=== PATIENT | female | born 1935 | race Caucasian/White ===

== ENCOUNTER 2017-11-07 21:48 | Inpatient (IN) ==
[2017-11-07 22:51] LABS: Basophils % 0.8 %; Eosinophils # 0.3 K/mcL (0.0-0.6); Eosinophils % 6.5 %; Hematocrit 32.9 % (35.3-44.9); Hemoglobin 10.9 g/dL (11.5-15.4); Immature Granulocytes % 0.2 % (0-4); Lymphocytes # 1.1 K/mcL (0.6-4.6); Lymphocytes % 20.8 %; Mean Corpuscular HGB Conc 33.1 g/dL (31.6-35.5); Mean Corpuscular Hemoglobin 32.6 pg (28.0-33.3); Mean Corpuscular Volume 98.5 fL (83.0-100.0); Mean Platelet Volume 10.2 fL (9.4-12.4); Monocytes # 0.5 K/mcL (0.0-1.3); Neutrophils # 3.1 K/mcL (1.6-8.9); Platelet Count 124 K/mcL (140-400); Red Blood Count 3.34 M/mcL (3.82-4.97); Red Cell Distribution Width 13.1 % (11.5-14.5); Segmented Neutrophils % 61.7 %
[2017-11-07 23:12] LABS: BUN/Creatinine Ratio 21 (6-26); Blood Urea Nitrogen 21 mg/dL (8-23); Carbon Dioxide 26 mEq/L (23-29); Chloride 106 mEq/L (98-107); Glucose 88 mg/dL (70-105); Osmolality,Calculated 290 (280-300); Potassium 4.1 mEq/L (3.5-5.1); Sodium 139 mEq/L (136-145); eGFR For African Americans > 60 (> 60); eGFR For Non-African Americans 54 (> 60)
[2017-11-07 23:13] LABS: Troponin I 0.03 ng/mL (< 0.04)
[2017-11-07] MEDS ORDERED: Furosemide 40 MG/4 ML VIAL IVP ONE (23:44)
[2017-11-07] MEDS ORDERED: Isovue-370 500 ML INFUS..BTL IV ONE (23:45)
--- NOTE | 2017-11-08 00:23 | Emergency Department Note ---
Disposition Clinical Impression: Congestive heart failure Qualifiers: Heart failure type: unspecified Heart failure chronicity: acute on chronic Qualified Code(s): I50.9 - Heart failure, unspecified Community acquired pneumonia Qualifiers: Laterality: unspecified laterality Qualified Code(s): J18.9 - Pneumonia, unspecified organism Disposition: Admitted As Inpatient Condition: Undetermined Referrals: NONE,PCP [Primary Care Provider] - Forms: ED Satisfaction Letter General Adult HPI - General Chief complaint: ED Shortness of Breath/Dyspnea Stated complaint: COUGH/SOB Time Seen by Provider: 11/07/17 22:13 Source: patient, EMS Mode of arrival: EMS Limitations: age Nursing Notes Reviewed: Yes Vital Signs Reviewed: Yes - History of Present Illness HPI Narrative: 82-year-old female with a history of dementia, CABG, hysterectomy, hypertension , systolic heart murmur, CHF presents to the emergency room for evaluation of a cough and congestion. Patient was brought in by EMS from [facility] in [place], [place] at the request of the family. According to patient's postal mail carrier/[id number] on Sunday patient's blood pressure was 53/43 at the PCPs office she was sent to hold her ED where she received fluids and was told to hold patient's lisinopril and coronary until seen by PCP again. Today patient's blood pressure was down again said the family notified EMS but unsure of the result Caregiver states within the last 5 days patient has gained 7 pounds going from 103 pounds to 110 pounds and has edema to her bilateral lower extremities. Caregiver states patient has been coughing more and it is productive with a thin clear fluid. Caregiver states coughing that is productive like this is a chronic condition however over the last couple days he has increased. Patient does wear 2 L O2 during at bedtime due to shortness of breath. Caregiver states patient has sores on her feet that she says have vascular testing with Dr. Le on the . Patient does have a history of dementia, caregiver states in new places patient is more confused than she also suffers from . Patient does have a POA which is her son, she is a full code per the caregiver. Caregiver and patient both refuse fever, chills, chest pain, nausea, vomiting, diarrhea, constipation. Caregiver does state the patient has been more lethargic and suffering from general malaise over the last couple days. Patient states she is unsure why she is here. Onset (ago): day(s) - Related Data Allergies Allergy/AdvReac Type Severity Reaction Status Date / Time No Known Allergies Allergy Verified 11/07/17 21:50 All systems ED: reviewed and negative except as stated. Review of Systems: As Per HPI Past Medical History - Past Medical History Attestation: Yes The following information was validated with the patient. Source: patient Medical history: Reports: CHF, hypertension Psychiatric history: Reports: no psych history ECONOMIC ANALYST history: Reports: non-contributory - Social History Smoking Status: Never smoker Smokeless Tobacco Status: No Alcohol use: Reports: none Drug use: Reports: none Physical Exam - General Limitations: altered mental status (Baseline dementia), age General appearance: alert, in no apparent distress - Head Head exam: atraumatic, normocephalic, normal inspection - Eye Eye exam: Present: normal appearance, PERRL - ENT ENT exam: mucous membranes moist - Neck Neck exam: Present: normal inspection, full ROM, trachea midline - Chest Chest inspection: Present: normal inspection, symmetric chest wall rise - Respiratory Respiratory exam: Present: prolonged expiratory phase - Expanded Respiratory Exam Location: wheezes: Left, Right, Lower, rhonchi: Left, Right, Lower (Scattered), decreased breath sounds: Left, Right, Lower - Cardiovascular Cardiovascular exam: Present: regular rate, normal rhythm, systolic murmur, other (+2 pitting edema bilateral lower exterminities) - Abdominal Exam Abdominal exam: Present: soft, Non-Tender, normal bowel sounds - Extremities Exam Extremities exam: Present: normal inspection, full ROM. Absent: tenderness, pedal edema - Expanded Lower Extremity Exam Gait: not tested/not observed - Neurological Exam Neurological exam: Present: alert, oriented X3 (Alert and oriented 3 difficulty with following conversation due to baseline dementia) - Psychiatric Psychiatric exam: Present: normal affect, normal mood - Skin Skin exam: Present: warm, dry, normal color Course Course Narrative: 82-year-old female who is well-hydrated, well-developed in no apparent distress presents to the emergency department via EMS. Upon arrival patient is unable to state why she was brought to our facility. She states she has not been feeling sick. She is unable to review a course of events that led from her being at home through the hospital to here. However patient is alert and oriented 3 she is able to see where she is at, her name birthday, and answer questions. Physical exam reveals decreased breath sounds, scattered rhonchi to bases, patient does not appear in any respiratory distress that she is speaking in full sentences easily, SPO2 97% on room air. EKG without changes from previous from [facility], no sign of ST elevation or ST depression is noted to have inverted P and T waves in inferior leads, noted with 2+ bilateral pitting edema to bilateral lower extermities, bowel sounds 4 no masses, organomegaly, tenderness with palpation. Chest x-ray shows left lower lobe pleural effusions as well as left lower lobe pneumonia. BNP 756, GFR 54, troponin within normal limits on initial labs. D- dimer 1313. Given the patient has had increased coughing, increased mucus production we will continue a CT of the chest to ensure no PE. No family was available at the hospital for consultation, initially prior to lab work returning I spoke with caregiver on the phone who denied any hemoptysis , purulent mucus production, or signs of systemic infection. She states patient is constant and has not noticed any change in smell of urine. I asked patient to his symptoms and she did answer all of them were negative and that she continue states she did not know why she was here. She did admit to coughing more and having some difficulty in breathing over "last couple days ". Plan is to admit to hospitalist services for CHF exacerbation compounded with community acquired pneumonia. Dr. Bucio has had one-on-one face time with patient and is agreeable to plan of care. - Reevaluation(s) Reevaluation #1: CT of the chest returns without sign of PE, does show a nodule in the chest that they cannot rule out malignancy. Spoke with hospitalist who is agreeable to see patient at this time. She has been resting comfortably in no acute distress continues with O2 at 2 L. Time: 04:16 Vital Signs Temperature 97.6 F 11/07/17 21:50 Pulse Rate 69 11/07/17 21:50 Respiratory Rate 18 11/07/17 21:50 Blood Pressure 121/66 11/07/17 21:50 O2 Sat by Pulse Oximetry 95 11/07/17 21:50 Temperature 97.6 F 11/07/17 21:50 Pulse Rate 69 11/07/17 21:50 Respiratory Rate 18 11/07/17 21:50 Blood Pressure 121/66 11/07/17 21:50 O2 Sat by Pulse Oximetry 95 11/07/17 21:50 Oxygen Delivery Oxygen Delivery Room Air Medical Decision Making - Lab Data Result diagrams: 11/07/17 22:41 11/07/17 22:41 Lab Results 11/07/17 11/07/17 11/07/17 Range/Units 22:41 22:41 22:41 WBC 5.1 (4.3-11.1) K/mcL RBC 3.34 L (3.82-4.97) M/mcL Hgb 10.9 L (11.5-15.4) g/dL Hct 32.9 L (35.3-44.9) % MCV 98.5 (83.0-100.0) fL MCH 32.6 (28.0-33.3) pg MCHC 33.1 (31.6-35.5) g/dL RDW 13.1 (11.5-14.5) % Plt Count 124 L (140-400) K/mcL MPV 10.2 (9.4-12.4) fL Immature Gran % 0.2 (0-4) % Seg Neutrophils % 61.7 % Lymphocytes % 20.8 % Monocytes % 10.0 % Eosinophils % 6.5 % Basophils % 0.8 % Neutrophils # 3.1 (1.6-8.9) K/mcL Lymphocytes # 1.1 (0.6-4.6) K/mcL Monocytes # 0.5 (0.0-1.3) K/mcL Eosinophils # 0.3 (0.0-0.6) K/mcL Basophils # 0.0 (0.0-0.2) K/mcL D-Dimer 1313 H (0-500) ng/mLFEU Sodium 139 (136-145) mEq/L Potassium 4.1 (3.5-5.1) mEq/L Chloride 106 (98-107) mEq/L Carbon Dioxide 26 (23-29) mEq/L BUN 21 (8-23) mg/dL Creatinine 0.99 (0.60-1.20) mg/dL Est GFR ( Amer) > 60 (> 60) Est GFR (Non-Af Amer) 54 L (> 60) BUN/Creatinine Ratio 21 (6-26) Glucose 88 (70-105) mg/dL Calculated Osmolality 290 (280-300) Lactic Acid (0.5-2.2) mmol/L Calcium 9.0 (8.6-10.3) mg/dL Troponin I 0.03 (< 0.04) ng/mL B-Natriuretic Peptide (Less than 100) pg/mL Urine Color (Yellow) Urine Clarity (Clear) Urine pH (5.0-8.0) pH Units Ur Specific [place] (1.010-1.025) Urine Protein (Neg-Trace) mg/dL Urine Glucose (UA) (Normal) mg/dL Urine Ketones (Negative) mg/dL Urine Blood (Negative) Urine Nitrite (Negative) Urine Bilirubin (Negative) Urine Urobilinogen (Normal) mg/dL Ur Leukocyte Esterase (Negative) Ur Culture Indicated? (NO) 11/07/17 11/07/17 11/08/17 Range/Units 22:41 22:41 01:01 WBC (4.3-11.1) K/mcL RBC (3.82-4.97) M/mcL Hgb (11.5-15.4) g/dL Hct (35.3-44.9) % MCV (83.0-100.0) fL MCH (28.0-33.3) pg MCHC (31.6-35.5) g/dL RDW (11.5-14.5) % Plt Count (140-400) K/mcL MPV (9.4-12.4) fL Immature Gran % (0-4) % Seg Neutrophils % % Lymphocytes % % Monocytes % % Eosinophils % % Basophils % % Neutrophils # (1.6-8.9) K/mcL Lymphocytes # (0.6-4.6) K/mcL Monocytes # (0.0-1.3) K/mcL Eosinophils # (0.0-0.6) K/mcL Basophils # (0.0-0.2) K/mcL D-Dimer (0-500) ng/mLFEU Sodium (136-145) mEq/L Potassium (3.5-5.1) mEq/L Chloride (98-107) mEq/L Carbon Dioxide (23-29) mEq/L BUN (8-23) mg/dL Creatinine (0.60-1.20) mg/dL Est GFR ( Amer) (> 60) Est GFR (Non-Af Amer) (> 60) BUN/Creatinine Ratio (6-26) Glucose (70-105) mg/dL Calculated Osmolality (280-300) Lactic Acid 1.2 0.9 (0.5-2.2) mmol/L Calcium (8.6-10.3) mg/dL Troponin I (< 0.04) ng/mL B-Natriuretic Peptide 756 H (Less than 100) pg/mL Urine Color (Yellow) Urine Clarity (Clear) Urine pH (5.0-8.0) pH Units Ur Specific [place] (1.010-1.025) Urine Protein (Neg-Trace) mg/dL Urine Glucose (UA) (Normal) mg/dL Urine Ketones (Negative) mg/dL Urine Blood (Negative) Urine Nitrite (Negative) Urine Bilirubin (Negative) Urine Urobilinogen (Normal) mg/dL Ur Leukocyte Esterase (Negative) Ur Culture Indicated? (NO) 11/08/17 Range/Units 02:20 WBC (4.3-11.1) K/mcL RBC (3.82-4.97) M/mcL Hgb (11.5-15.4) g/dL Hct (35.3-44.9) % MCV (83.0-100.0) fL MCH (28.0-33.3) pg MCHC (31.6-35.5) g/dL RDW (11.5-14.5) % Plt Count (140-400) K/mcL MPV (9.4-12.4) fL Immature Gran % (0-4) % Seg Neutrophils % % Lymphocytes % % Monocytes % % Eosinophils % % Basophils % % Neutrophils # (1.6-8.9) K/mcL Lymphocytes # (0.6-4.6) K/mcL Monocytes # (0.0-1.3) K/mcL Eosinophils # (0.0-0.6) K/mcL Basophils # (0.0-0.2) K/mcL D-Dimer (0-500) ng/mLFEU Sodium (136-145) mEq/L Potassium (3.5-5.1) mEq/L Chloride (98-107) mEq/L Carbon Dioxide (23-29) mEq/L BUN (8-23) mg/dL Creatinine (0.60-1.20) mg/dL Est GFR ( Amer) (> 60) Est GFR (Non-Af Amer) (> 60) BUN/Creatinine Ratio (6-26) Glucose (70-105) mg/dL Calculated Osmolality (280-300) Lactic Acid (0.5-2.2) mmol/L Calcium (8.6-10.3) mg/dL Troponin I (< 0.04) ng/mL B-Natriuretic Peptide (Less than 100) pg/mL Urine Color Yellow (Yellow) Urine Clarity Clear (Clear) Urine pH 6.5 (5.0-8.0) pH Units Ur Specific [place] 1.016 (1.010-1.025) Urine Protein Negative (Neg-Trace) mg/dL Urine Glucose (UA) Normal (Normal) mg/dL Urine Ketones Negative (Negative) mg/dL Urine Blood Negative (Negative) Urine Nitrite Negative (Negative) Urine Bilirubin Negative (Negative) Urine Urobilinogen Normal (Normal) mg/dL Ur Leukocyte Esterase Negative (Negative) Ur Culture Indicated? NO (NO)
[2017-11-08] MEDS ORDERED: Azithromycin 500 MG in D5% in Water 250 ML IVPB ONE (00:45)
--- NOTE | 2017-11-08 00:47 | Emergency Department Note ---
START Narrative - START START: For this encounter, I have reviewed the DISTRICT GAUGER or PA documentation, treatment plan, and medical decision making; and I have had face to face time with this patient. 81-year-old female presented to the emergency room for shortness of breath and cough. Workup revealed evidence of an elevated BNP with a left basilar pneumonia and effusion. Patient has a touch of pneumonia as well as congestive heart failure. We will do a CTA of the chest as her d-dimer came back severely elevated. Patient was given Lasix earlier. We will start her on IV antibiotics as well. Follow-up CTA of the chest for possible pulmonary embolus. Patient will need to be admitted.
[2017-11-08] MEDS ORDERED: Isovue-370 500 ML INFUS..BTL IV ONE (01:35)
[2017-11-08 02:44] LABS: Bilirubin,Urine Negative (Negative); Blood,Urine Negative (Negative); Clarity,Urine Clear (Clear); Color,Urine Yellow (Yellow); Glucose,Urine (UA) Normal (Normal); Ketones,Urine Negative (Negative); Leukocyte Esterase,Urine Negative (Negative); Nitrite,Urine Negative (Negative); PH,Urine 6.5 pH Units (5.0-8.0); Protein,Urine Negative (Neg-Trace); Specific Gravity,Urine 1.016 (1.010-1.025); Urobilinogen,Urine Normal (Normal)
[2017-11-08] MEDS ORDERED: Naloxone 0.4 MG/ML INJ IVP PRN (04:48)
[2017-11-08] MEDS ORDERED: Ipratropium/Albuterol Neb 3 ML IH PRN (04:56)
--- NOTE | 2017-11-08 05:04 | Internal Med History&Physical ---
Date of Encounter: 11/08/17 Time of Encounter: 04:00 Internal Medicine - H&P: HPI Chief complaint: Shortness of breath and cough Admitted From: Home Plans for Post Hospital Care: Home History of present illness: Ms. Mclaughlin is a 82 year old female present to ER for shortness of breath and cough. Past medical history is significant for COPD, CHF, dementia, hypertension. Patient is demented and no family member at bedside when I saw patient. History is partially obtained from transfer documentation and ER documentation. Patient has episode of hypotension in PCP office, her hypertension medication is on hold. Patient did develop shortness of breath and leg swelling for about 1 week. Patient has gained 7 pounds. Patient also complaining of cough with whitish sputum. No fever, no nausea, no vomiting. In the emergency room, patient has elevated BNP, and chest x-ray shows left lower lobe pneumonia. Further CTA shows lung nodule on left lower lobe, no PE. Patient was admitted as pneumonia and CHF exacerbation. Past Med Surg Social Fam HX - Past Medical History Medical history: CHF, hypertension Psychiatric history: no psych history - Social History Smoking Status: Never smoker Smokeless Tobacco Status: No Alcohol use: none Drug use: none - Family History Mother History Unknown: Yes Internal Medicine - H&P: Meds 3 Allergy/AdvReac Type Severity Reaction Status Date / Time No Known Allergies Allergy Verified 11/07/17 21:50 All Systems PM: A 10-system review of systems was performed and is negative for pertinent findings except as documented above in the HPI. - Constitutional Vitals: Temp Pulse Resp BP Pulse Ox 97.6 F 69 18 121/66 95 11/07/17 21:50 11/07/17 21:50 11/07/17 21:50 11/07/17 21:50 11/07/17 21:50 General appearance: Present: A&O X 3, no acute distress, answers questions appropriately - Head Head exam: Present: atraumatic, normocephalic - Eye Eye exam: Present: PERRL, conjuntiva pink, sclera anicteric Pupils: Present: PERRL - Neck Neck exam general surgery: Present: supple, trachea midline. Absent: lymphadenopathy - Respiratory Respiratory exam: Present: CTAB. Absent: accessory muscle use, rales, rhonchi, wheezes Additional comments: Coarse breath sound b/l - Cardiovascular Cardiovascular exam: Present: RRR, +S1, +S2. Absent: diastolic murmur, gallop, rubs, systolic murmur - GI/Abdominal GI/Abdominal exam: Present: normal bowel sounds, soft, no peritoneal signs. Absent: distended, tenderness - Extremities Exam Extremities exam: Present: pedal edema (Bilaterally), warm, radial pulses palpable and symmetrical. Absent: calf tenderness, cyanotic - Neurological Exam Neurological exam: Present: CN II-XII intact, oriented X3, no focal deficits. Absent: pronater drift, facial droop, speech deficit - Skin Skin exam: Present: dry, intact Internal Med - H&P Results - Labs CBC & Chem 7: 11/07/17 22:41 11/07/17 22:41 Labs: Short CBC 11/07/17 Range/Units 22:41 WBC 5.1 (4.3-11.1) K/mcL Hgb 10.9 L (11.5-15.4) g/dL Hct 32.9 L (35.3-44.9) % Plt Count 124 L (140-400) K/mcL Neutrophils # 3.1 (1.6-8.9) K/mcL BMP 11/07/17 22:41 Sodium 139 Potassium 4.1 Chloride 106 Carbon Dioxide 26 BUN 21 Creatinine 0.99 Glucose 88 Calcium 9.0 Cardiac Enzymes 11/07/17 Range/Units 22:41 Troponin I 0.03 (< 0.04) ng/mL Urine 11/08/17 Range/Units 02:20 Urine Color Yellow (Yellow) Urine Clarity Clear (Clear) Urine pH 6.5 (5.0-8.0) pH Units Ur Specific [place] 1.016 (1.010-1.025) Urine Protein Negative (Neg-Trace) mg/dL Urine Glucose (UA) Normal (Normal) mg/dL - EKG Data EKG shows normal: sinus rhythm, ST-T waves (Nonspecific ST-T change) - Impressions ITS Impressions Chest X-Ray 11/07/17 22:22 IMPRESSION: Left basilar airspace disease most consistent with pneumonia with small parapneumonic pleural effusion. The previously noted left lower lobe nodule is not visualized and may be obscured by the left basilar disease. D/ / Stuart Patel MD / Stuart Patel MD Interpreting Provider: Stuart Patel MD Chest CTA 11/08/17 01:35 IMPRESSION: 1. No evidence of pulmonary embolism 2. 1.8 cm pulmonary nodule in the left lower lobe. Neoplastic process is not excluded 3. Moderate hiatal hernia 4. Incidental findings as above. RECOMMENDATIONS: Fleischner Society guidelines for follow-up and management of incidentally detected pulmonary nodules: Single Solid Nodule: Nodule size greater than 8 mm In a low-risk patient, consider CT at 3 months, PET/CT, or tissue sampling. In a high-risk patient, consider CT at 3 months, PET/CT, or tissue sampling. - Low risk patients include individuals with minimal or absent history of smoking and other known risk factors. - High risk patients include individuals with a history or smoking or known risk factors. Radiology 2017 http://pubs.rsna.org/doi/full/10.1148/[email or web address] D/ / Ramon Wang MD / Ramon Wang MD Interpreting Provider: Ramon Wang MD - Assessment and plan (1) COPD (chronic obstructive pulmonary disease) Current Visit: Yes Status: Acute Assessment and plan: Patient has no wheezing. Continue oxygen supportive treatment. Place patient on DuoNeb when necessary. Qualifiers: COPD type: emphysema Emphysema type: unspecified Qualified Code(s): J43.9 - Emphysema, unspecified (2) Lung nodule Current Visit: Yes Status: Acute Assessment and plan: 1.8 cm on left lower lobe. Patient has lung nodule since last the chest x-ray in 2017. Need to discuss with family for further workup. May consider repeat a CAT scan in 3 month, PET/CT, or biopsy per radiology recommendations. (3) DVT prophylaxis Current Visit: Yes Status: Acute Assessment and plan: EPCD (4) Dementia Current Visit: Yes Status: Acute Assessment and plan: We will resume home medications after verification Qualifiers: Dementia type: unspecified type Dementia behavioral disturbance: without behavioral disturbance Qualified Code(s): F03.90 - Unspecified dementia without behavioral disturbance (5) Congestive heart failure Current Visit: Yes Status: Acute Assessment and plan: Patient has increased leg swelling, increased BNP, patient has gained 7 pounds of weight and has symptoms of shortness of breath. Consider CHF exacerbation. - Strict I and O - Lasix 20 mg IV twice a day - Fluid restriction diet - Repeat echocardiogram Qualifiers: Heart failure type: unspecified Heart failure chronicity: acute on chronic Qualified Code(s): I50.9 - Heart failure, unspecified (6) Community acquired pneumonia Current Visit: Yes Status: Acute Assessment and plan: Place patient on azithromycin and Rocephin. Place patient on cough syrup. Continue supportive treatment. Qualifiers: Laterality: left Lung location: lower lobe of lung Qualified Code(s): J18.1 - Lobar pneumonia, unspecified organism - Time Spent With Patient Total time spent is greater than 50% in coordination of care (as documented) at patient's floor/unit and/or counseling patient: 40 minutes Greater than 35 minutes
[2017-11-08] MEDS ORDERED: *HR* Heparin 5,000 UNIT/ML VIAL SQ SCH (06:00)
[2017-11-08] MEDS: cefTRIAXone 1,000 MG in Water for inj. (sterile) 20 ML 10 ML IVPB SCH (07:33)
[2017-11-08] MEDS: Furosemide 20 MG/2 ML VIAL IVP SCH ×2 (08:56→20:36)
--- NOTE | 2017-11-08 11:11 | Event Note ---
Date of Encounter: 11/08/17 Time of Encounter: 11:00 Seen and assessed. Agree with plan per nighttime hospitalist. Continue diuresis and broad spectrum abx for possible pneumonia and CHF
[2017-11-08] MEDS: Ipratropium/Albuterol Neb 3 ML IH SCH ×3 (11:42→20:41)
[2017-11-08] MEDS: Budesonide/Formoterol 160/4.5 MDI IH SCH ×2 (11:42→20:41)
[2017-11-08] MEDS: Acetaminophen 325 MG TABLET PO PRN ×2 (15:37→21:43)
[2017-11-08] MEDS: methylPREDNISolone 125 MG/2 ML VIAL IVP SCH (15:37)
--- NOTE | 2017-11-08 15:56 | Electrocardiograph Report ---
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
[2017-11-09] MEDS: Ipratropium/Albuterol Neb 3 ML IH SCH ×6 (00:14→19:31)
[2017-11-09] MEDS: methylPREDNISolone 125 MG/2 ML VIAL IVP SCH ×2 (00:40→09:28)
[2017-11-09 06:24] LABS: Basophils % 0.3 %; Hematocrit 34.8 % (35.3-44.9); Hemoglobin 11.7 g/dL (11.5-15.4); Immature Granulocytes % 0.3 % (0-4); Lymphocytes # 0.4 K/mcL (0.6-4.6); Lymphocytes % 11.5 %; Mean Corpuscular HGB Conc 33.6 g/dL (31.6-35.5); Mean Corpuscular Hemoglobin 32.1 pg (28.0-33.3); Mean Corpuscular Volume 95.3 fL (83.0-100.0); Mean Platelet Volume 10.4 fL (9.4-12.4); Monocytes # 0.1 K/mcL (0.0-1.3); Platelet Count 156 K/mcL (140-400); Red Blood Count 3.65 M/mcL (3.82-4.97); Red Cell Distribution Width 12.7 % (11.5-14.5); Segmented Neutrophils % 85.9 %
[2017-11-09] MEDS: cefTRIAXone 1,000 MG in Water for inj. (sterile) 20 ML 10 ML IVPB SCH (06:32)
[2017-11-09] MEDS: Azithromycin 500 MG in D5% in Water 250 ML IVPB SCH (06:32)
[2017-11-09 06:35] LABS: BUN/Creatinine Ratio 31 (6-26); Blood Urea Nitrogen 29 mg/dL (8-23); Calcium 9.4 mg/dL (8.6-10.3); Carbon Dioxide 30 mEq/L (23-29); Chloride 98 mEq/L (98-107); Glucose 173 mg/dL (70-105); Magnesium 1.7 mg/dL (1.6-2.6); Osmolality,Calculated 292 (280-300); Sodium 136 mEq/L (136-145); eGFR For African Americans > 60 (> 60); eGFR For Non-African Americans 57 (> 60)
[2017-11-09] MEDS: Budesonide/Formoterol 160/4.5 MDI IH SCH ×2 (07:54→19:31)
[2017-11-09] MEDS: Furosemide 20 MG/2 ML VIAL IVP SCH ×2 (09:28→17:58)
--- NOTE | 2017-11-09 10:39 | Internal Med Progress Note ---
Date of Encounter: 11/09/17 Time of Encounter: 10:30 - Assessment and plan (1) Congestive heart failure Current Visit: Yes Status: Acute Assessment and plan: Patient has increased leg swelling, increased BNP, patient has gained 7 pounds of weight and has symptoms of shortness of breath. Continue IV lasix BID. patient improving. Echo showed preserved EF Qualifiers: Heart failure type: unspecified Heart failure chronicity: acute on chronic Qualified Code(s): I50.9 - Heart failure, unspecified (2) Community acquired pneumonia Current Visit: Yes Status: Acute Assessment and plan: Place patient on azithromycin and Rocephin. Place patient on cough syrup. Continue supportive treatment. Qualifiers: Laterality: left Lung location: lower lobe of lung Qualified Code(s): J18.1 - Lobar pneumonia, unspecified organism (3) COPD (chronic obstructive pulmonary disease) Current Visit: Yes Status: Acute Assessment and plan: COPD exacerbation with chest tightness and active wheezing. Continue nebs and steroids. Continue oxygen supportive treatment. Place patient on DuoNeb when necessary. Qualifiers: COPD type: emphysema Emphysema type: unspecified Qualified Code(s): J43.9 - Emphysema, unspecified (4) Lung nodule Current Visit: Yes Status: Acute Assessment and plan: 1.8 cm on left lower lobe. Patient has lung nodule since last the chest x-ray in 2017. Need to discuss with family for further workup. May consider repeat a CAT scan in 3 month, PET/CT, or biopsy per radiology recommendations. (5) DVT prophylaxis Current Visit: Yes Status: Acute Assessment and plan: EPCD (6) Dementia Current Visit: Yes Status: Acute Assessment and plan: We will resume home medications after verification Qualifiers: Dementia type: unspecified type Dementia behavioral disturbance: without behavioral disturbance Qualified Code(s): F03.90 - Unspecified dementia without behavioral disturbance - Time Spent With Patient Total time spent is greater than 50% in coordination of care (as documented) at patient's floor/unit and/or counseling patient: - Subjective Interval history: No acute events overnight - Constitutional Vitals: Temp Pulse Resp BP Pulse Ox 97.5 F L 82 16 104/66 95 11/09/17 06:56 11/09/17 06:56 11/09/17 06:56 11/09/17 06:56 11/09/17 06:56 General appearance: Present: A&O X 3, no acute distress, answers questions appropriately - Head Head exam: Present: atraumatic, normocephalic - Eye Eye exam: Present: PERRL, conjuntiva pink, sclera anicteric Pupils: Present: PERRL - Neck Neck exam general surgery: Present: supple, trachea midline. Absent: lymphadenopathy - Respiratory Respiratory exam: Present: CTAB. Absent: accessory muscle use, rales, rhonchi, wheezes - Cardiovascular Cardiovascular exam: Present: RRR, +S1, +S2. Absent: diastolic murmur, gallop, rubs, systolic murmur - GI/Abdominal GI/Abdominal exam: Present: normal bowel sounds, soft, no peritoneal signs. Absent: distended, tenderness - Extremities Exam Extremities exam: Present: warm, radial pulses palpable and symmetrical. Absent : calf tenderness, cyanotic, pedal edema - Neurological Exam Neurological exam: Present: CN II-XII intact, oriented X3, no focal deficits. Absent: pronater drift, facial droop, speech deficit - Skin Skin exam: Present: dry, intact Internal Medicine: Result - Labs CBC & Chem 7: 11/09/17 05:43 11/09/17 05:43 Labs: Short CBC 11/09/17 Range/Units 05:43 WBC 3.5 L (4.3-11.1) K/mcL Hgb 11.7 (11.5-15.4) g/dL Hct 34.8 L (35.3-44.9) % Plt Count 156 (140-400) K/mcL Neutrophils # 3.0 (1.6-8.9) K/mcL BMP 11/09/17 05:43 Sodium 136 Potassium 4.0 Chloride 98 Carbon Dioxide 30 H BUN 29 H Creatinine 0.94 Glucose 173 H Calcium 9.4 Cardiac Enzymes 11/08/17 11/08/17 Range/Units 10:14 15:31 Troponin I 0.03 0.03 (< 0.04) ng/mL - ABG Interpretation ABG results: PT/INR, D-dimer D-Dimer 1313 ng/mLFEU (0-500) H 11/07/17 22:41 Consult Discharge Plan - Plan Referrals: NONE,PCP [Non-Partnered Physician] -
[2017-11-09] MEDS: Divalproex Sodium 125 MG CAPSULE PO SCH ×2 (11:51→21:50)
[2017-11-09] MEDS: Acetaminophen 325 MG TABLET PO PRN ×2 (11:51→17:57)
[2017-11-09] MEDS: *HR* Heparin 5,000 UNIT/ML VIAL SQ SCH (21:50)
[2017-11-10] MEDS: Ipratropium/Albuterol Neb 3 ML IH SCH ×7 (00:05→23:40)
[2017-11-10] MEDS: Chloraseptic Spray 177 ML BOTTLE MM PRN ×3 (00:52→20:44)
[2017-11-10] MEDS: Acetaminophen 325 MG TABLET PO PRN ×3 (00:59→21:46)
[2017-11-10] MEDS: cefTRIAXone 1,000 MG in Water for inj. (sterile) 20 ML 10 ML IVPB SCH (06:40)
[2017-11-10] MEDS: Azithromycin 500 MG in D5% in Water 250 ML IVPB SCH (06:40)
[2017-11-10] MEDS: *HR* Heparin 5,000 UNIT/ML VIAL SQ SCH ×2 (06:41→16:46)
[2017-11-10] MEDS: Budesonide/Formoterol 160/4.5 MDI IH SCH ×2 (07:22→19:34)
[2017-11-10 07:54] LABS: Basophils % 0.1 %; Hematocrit 30.7 % (35.3-44.9); Hemoglobin 10.4 g/dL (11.5-15.4); Immature Granulocytes % 0.4 % (0-4); Lymphocytes # 1.1 K/mcL (0.6-4.6); Lymphocytes % 14.5 %; Mean Corpuscular HGB Conc 33.9 g/dL (31.6-35.5); Mean Corpuscular Hemoglobin 32.3 pg (28.0-33.3); Mean Corpuscular Volume 95.3 fL (83.0-100.0); Mean Platelet Volume 10.1 fL (9.4-12.4); Monocytes # 0.4 K/mcL (0.0-1.3); Monocytes % 5.7 %; Neutrophils # 6.1 K/mcL (1.6-8.9); Platelet Count 167 K/mcL (140-400); Red Blood Count 3.22 M/mcL (3.82-4.97); Red Cell Distribution Width 13.1 % (11.5-14.5); Segmented Neutrophils % 79.3 %
[2017-11-10 08:05] LABS: BUN/Creatinine Ratio 34 (6-26); Blood Urea Nitrogen 30 mg/dL (8-23); Calcium 9.2 mg/dL (8.6-10.3); Carbon Dioxide 30 mEq/L (23-29); Chloride 98 mEq/L (98-107); Glucose 139 mg/dL (70-105); Osmolality,Calculated 294 (280-300); Potassium 3.2 mEq/L (3.5-5.1); Sodium 138 mEq/L (136-145); eGFR For African Americans > 60 (> 60); eGFR For Non-African Americans > 60 (> 60)
[2017-11-10] MEDS: Benzonatate 100 MG CAPSULE PO PRN (10:08)
[2017-11-10] MEDS: Furosemide 20 MG/2 ML VIAL IVP SCH ×2 (10:09→16:46)
[2017-11-10] MEDS: predniSONE 20 MG TABLET PO SCH (10:09)
[2017-11-10] MEDS: Aspirin Enteric Coated 325 MG Tablet PO SCH (10:09)
[2017-11-10] MEDS: Divalproex Sodium 125 MG CAPSULE PO SCH ×2 (10:09→21:35)
--- NOTE | 2017-11-10 14:33 | Internal Med Progress Note ---
Date of Encounter: 11/10/17 Time of Encounter: 14:30 - Assessment and plan (1) Congestive heart failure Current Visit: Yes Status: Acute Assessment and plan: Patient has increased leg swelling, increased BNP, patient has gained 7 pounds of weight and has symptoms of shortness of breath. Continue IV lasix BID. patient improving. Echo showed preserved EF Qualifiers: Heart failure type: unspecified Heart failure chronicity: acute on chronic Qualified Code(s): I50.9 - Heart failure, unspecified (2) Community acquired pneumonia Current Visit: Yes Status: Acute Assessment and plan: Place patient on azithromycin and Rocephin. Place patient on cough syrup. Continue supportive treatment. Qualifiers: Laterality: left Lung location: lower lobe of lung Qualified Code(s): J18.1 - Lobar pneumonia, unspecified organism (3) COPD (chronic obstructive pulmonary disease) Current Visit: Yes Status: Acute Assessment and plan: COPD exacerbation with chest tightness and active wheezing. Continue nebs and steroids. Continue oxygen supportive treatment. Place patient on DuoNeb when necessary. Qualifiers: COPD type: emphysema Emphysema type: unspecified Qualified Code(s): J43.9 - Emphysema, unspecified (4) Lung nodule Current Visit: Yes Status: Acute Assessment and plan: 1.8 cm on left lower lobe. Patient has lung nodule since last the chest x-ray in 2017. Need to discuss with family for further workup. May consider repeat a CAT scan in 3 month, PET/CT, or biopsy per radiology recommendations. (5) DVT prophylaxis Current Visit: Yes Status: Acute Assessment and plan: EPCD (6) Dementia Current Visit: Yes Status: Acute Assessment and plan: We will resume home medications after verification Qualifiers: Dementia type: unspecified type Dementia behavioral disturbance: without behavioral disturbance Qualified Code(s): F03.90 - Unspecified dementia without behavioral disturbance - Time Spent With Patient Total time spent is greater than 50% in coordination of care (as documented) at patient's floor/unit and/or counseling patient: - Subjective Interval history: No acute events overnight - Constitutional Vitals: Temp Pulse Resp BP Pulse Ox 98.1 F 103 16 108/66 97 11/10/17 13:00 11/10/17 13:00 11/10/17 13:00 11/10/17 13:00 11/10/17 13:00 General appearance: Present: A&O X 3, no acute distress, answers questions appropriately - Head Head exam: Present: atraumatic, normocephalic - Eye Eye exam: Present: PERRL, conjuntiva pink, sclera anicteric Pupils: Present: PERRL - Neck Neck exam general surgery: Present: supple, trachea midline. Absent: lymphadenopathy - Respiratory Respiratory exam: Present: CTAB. Absent: accessory muscle use, rales, rhonchi, wheezes Additional comments: Mild creps in lung bases - Cardiovascular Cardiovascular exam: Present: RRR, +S1, +S2. Absent: diastolic murmur, gallop, rubs, systolic murmur - GI/Abdominal GI/Abdominal exam: Present: normal bowel sounds, soft, no peritoneal signs. Absent: distended, tenderness - Extremities Exam Extremities exam: Present: warm, radial pulses palpable and symmetrical. Absent : calf tenderness, cyanotic, pedal edema - Neurological Exam Neurological exam: Present: CN II-XII intact, oriented X3, no focal deficits. Absent: pronater drift, facial droop, speech deficit - Skin Skin exam: Present: dry, intact Internal Medicine: Result - Labs CBC & Chem 7: 11/10/17 07:10 11/10/17 07:10 Labs: Short CBC 11/10/17 Range/Units 07:10 WBC 7.7 D (4.3-11.1) K/mcL Hgb 10.4 L (11.5-15.4) g/dL Hct 30.7 L (35.3-44.9) % Plt Count 167 (140-400) K/mcL Neutrophils # 6.1 (1.6-8.9) K/mcL BMP 11/10/17 07:10 Sodium 138 Potassium 3.2 L Chloride 98 Carbon Dioxide 30 H BUN 30 H Creatinine 0.87 Glucose 139 H Calcium 9.2 - ABG Interpretation ABG results: PT/INR, D-dimer D-Dimer 1313 ng/mLFEU (0-500) H 11/07/17 22:41 Consult Discharge Plan - Plan Referrals: NONE,PCP [Non-Partnered Physician] -
[2017-11-10] MEDS ORDERED: *HR* LORazepam 2 MG/ML VIAL IVP ONE (21:06)
[2017-11-11] MEDS: Ipratropium/Albuterol Neb 3 ML IH SCH ×5 (03:52→19:42)
[2017-11-11 04:01] LABS: Basophils % 0.1 %; Hemoglobin 10.7 g/dL (11.5-15.4); Immature Granulocytes % 0.4 % (0-4); Lymphocytes # 1.1 K/mcL (0.6-4.6); Lymphocytes % 15.7 %; Mean Corpuscular HGB Conc 34.5 g/dL (31.6-35.5); Mean Corpuscular Hemoglobin 33.2 pg (28.0-33.3); Mean Corpuscular Volume 96.3 fL (83.0-100.0); Mean Platelet Volume 9.6 fL (9.4-12.4); Monocytes # 0.5 K/mcL (0.0-1.3); Monocytes % 6.8 %; Neutrophils # 5.4 K/mcL (1.6-8.9); Platelet Count 200 K/mcL (140-400); Red Blood Count 3.22 M/mcL (3.82-4.97); Red Cell Distribution Width 13.1 % (11.5-14.5)
[2017-11-11 04:30] LABS: BUN/Creatinine Ratio 29 (6-26); Blood Urea Nitrogen 30 mg/dL (8-23); Calcium 9.7 mg/dL (8.6-10.3); Carbon Dioxide 33 mEq/L (23-29); Chloride 99 mEq/L (98-107); Glucose 116 mg/dL (70-105); Osmolality,Calculated 291 (280-300); Potassium 4.4 mEq/L (3.5-5.1); Sodium 137 mEq/L (136-145); eGFR For African Americans > 60 (> 60); eGFR For Non-African Americans 51 (> 60)
[2017-11-11] MEDS: cefTRIAXone 1,000 MG in Water for inj. (sterile) 20 ML 10 ML IVPB SCH (05:46)
[2017-11-11] MEDS: *HR* Heparin 5,000 UNIT/ML VIAL SQ SCH ×2 (05:47→18:07)
[2017-11-11] MEDS: Azithromycin 500 MG in D5% in Water 250 ML IVPB SCH (05:47)
[2017-11-11] MEDS: Budesonide/Formoterol 160/4.5 MDI IH SCH ×2 (07:30→19:43)
--- NOTE | 2017-11-11 09:10 | Internal Med Progress Note ---
Date of Encounter: 11/11/17 Time of Encounter: 09:00 - Assessment and plan (1) Congestive heart failure Current Visit: Yes Status: Acute Assessment and plan: Patient has increased leg swelling, increased BNP, patient has gained 7 pounds of weight and has symptoms of shortness of breath. Continue IV lasix BID. patient improving. Echo showed preserved EF Qualifiers: Heart failure type: unspecified Heart failure chronicity: acute on chronic Qualified Code(s): I50.9 - Heart failure, unspecified (2) Community acquired pneumonia Current Visit: Yes Status: Acute Assessment and plan: Place patient on azithromycin and Rocephin. Place patient on cough syrup. Continue supportive treatment. Qualifiers: Laterality: left Lung location: lower lobe of lung Qualified Code(s): J18.1 - Lobar pneumonia, unspecified organism (3) COPD (chronic obstructive pulmonary disease) Current Visit: Yes Status: Acute Assessment and plan: COPD exacerbation with chest tightness and active wheezing. Continue nebs and steroids. Continue oxygen supportive treatment. Place patient on DuoNeb when necessary. Qualifiers: COPD type: emphysema Emphysema type: unspecified Qualified Code(s): J43.9 - Emphysema, unspecified (4) Lung nodule Current Visit: Yes Status: Acute Assessment and plan: 1.8 cm on left lower lobe. Patient has lung nodule since last the chest x-ray in 2017. Need to discuss with family for further workup. May consider repeat a CAT scan in 3 month, PET/CT, or biopsy per radiology recommendations. (5) DVT prophylaxis Current Visit: Yes Status: Acute Assessment and plan: EPCD (6) Dementia Current Visit: Yes Status: Acute Assessment and plan: We will resume home medications after verification Qualifiers: Dementia type: unspecified type Dementia behavioral disturbance: without behavioral disturbance Qualified Code(s): F03.90 - Unspecified dementia without behavioral disturbance - Time Spent With Patient Total time spent is greater than 50% in coordination of care (as documented) at patient's floor/unit and/or counseling patient: - Subjective Interval history: No acute events overnight - Constitutional Vitals: Temp Pulse Resp BP Pulse Ox 98.6 F 84 17 109/92 99 11/11/17 07:25 11/11/17 07:25 11/11/17 07:30 11/11/17 07:25 11/11/17 07:30 General appearance: Present: A&O X 3, no acute distress, answers questions appropriately - Head Head exam: Present: atraumatic, normocephalic - Eye Eye exam: Present: PERRL, conjuntiva pink, sclera anicteric Pupils: Present: PERRL - Neck Neck exam general surgery: Present: supple, trachea midline. Absent: lymphadenopathy - Respiratory Respiratory exam: Present: CTAB. Absent: accessory muscle use, rales, rhonchi, wheezes - Cardiovascular Cardiovascular exam: Present: RRR, +S1, +S2. Absent: diastolic murmur, gallop, rubs, systolic murmur - GI/Abdominal GI/Abdominal exam: Present: normal bowel sounds, soft, no peritoneal signs. Absent: distended, tenderness - Extremities Exam Extremities exam: Present: warm, radial pulses palpable and symmetrical. Absent : calf tenderness, cyanotic, pedal edema - Neurological Exam Neurological exam: Present: CN II-XII intact, oriented X3, no focal deficits. Absent: pronater drift, facial droop, speech deficit - Skin Skin exam: Present: dry, intact Internal Medicine: Result - Labs CBC & Chem 7: 11/11/17 03:48 11/11/17 03:48 Labs: Short CBC 11/11/17 Range/Units 03:48 WBC 7.1 (4.3-11.1) K/mcL Hgb 10.7 L (11.5-15.4) g/dL Hct 31.0 L (35.3-44.9) % Plt Count 200 (140-400) K/mcL Neutrophils # 5.4 (1.6-8.9) K/mcL BMP 11/11/17 03:48 Sodium 137 Potassium 4.4 D Chloride 99 Carbon Dioxide 33 H BUN 30 H Creatinine 1.04 Glucose 116 H Calcium 9.7 - ABG Interpretation ABG results: PT/INR, D-dimer D-Dimer 1313 ng/mLFEU (0-500) H 11/07/17 22:41 - Impressions Impressions Chest X-Ray 11/10/17 14:31 IMPRESSION: Bibasilar atelectasis and/or pneumonia. D/ / Tigre Day MD / Tigre Day MD Interpreting Provider: Tigre Day MD Soft Tissue Neck X-Ray 11/10/17 14:31 IMPRESSION: No acute process identified. D/ / Tigre Day MD / Tigre Day MD Interpreting Provider: Tigre Day MD Consult Discharge Plan - Plan Referrals: NONE,PCP [Non-Partnered Physician] -
[2017-11-11] MEDS: Aspirin Enteric Coated 325 MG Tablet PO SCH (10:51)
[2017-11-11] MEDS: Divalproex Sodium 125 MG CAPSULE PO SCH ×2 (10:51→22:20)
[2017-11-11] MEDS: predniSONE 20 MG TABLET PO SCH (10:51)
[2017-11-11] MEDS: Benzonatate 100 MG CAPSULE PO PRN (10:51)
[2017-11-11] MEDS: Furosemide 20 MG/2 ML VIAL IVP SCH ×2 (10:51→18:06)
[2017-11-11] MEDS ORDERED: 0.9 % Sodium Chloride 250 ML IVC ONE (18:18)
[2017-11-12] MEDS: Ipratropium/Albuterol Neb 3 ML IH SCH ×4 (00:13→11:31)
[2017-11-12] MEDS ORDERED: 0.9 % Sodium Chloride 500 ML IVC ONE (01:57)
[2017-11-12 04:42] LABS: Hematocrit 31.3 % (35.3-44.9); Hemoglobin 10.4 g/dL (11.5-15.4); Immature Granulocytes % 0.5 % (0-4); Lymphocytes # 1.1 K/mcL (0.6-4.6); Lymphocytes % 16.4 %; Mean Corpuscular HGB Conc 33.2 g/dL (31.6-35.5); Mean Corpuscular Hemoglobin 32.6 pg (28.0-33.3); Mean Corpuscular Volume 98.1 fL (83.0-100.0); Mean Platelet Volume 9.7 fL (9.4-12.4); Monocytes # 0.5 K/mcL (0.0-1.3); Monocytes % 7.6 %; Neutrophils # 4.9 K/mcL (1.6-8.9); Platelet Count 204 K/mcL (140-400); Red Blood Count 3.19 M/mcL (3.82-4.97); Red Cell Distribution Width 13.1 % (11.5-14.5); Segmented Neutrophils % 75.5 %
[2017-11-12 05:02] LABS: Calcium 9.3 mg/dL (8.6-10.3); Potassium 4.1 mEq/L (3.5-5.1)
[2017-11-12] MEDS: cefTRIAXone 1,000 MG in Water for inj. (sterile) 20 ML 10 ML IVPB SCH (06:28)
[2017-11-12] MEDS: *HR* Heparin 5,000 UNIT/ML VIAL SQ SCH (06:29)
[2017-11-12] MEDS: Azithromycin 500 MG in D5% in Water 250 ML IVPB SCH (06:29)
[2017-11-12] MEDS: Budesonide/Formoterol 160/4.5 MDI IH SCH (07:28)
[2017-11-12] MEDS: Aspirin Enteric Coated 325 MG Tablet PO SCH (08:09)
[2017-11-12] MEDS: Divalproex Sodium 125 MG CAPSULE PO SCH (08:09)
[2017-11-12] MEDS: predniSONE 20 MG TABLET PO SCH (08:09)
--- NOTE | 2017-11-12 10:09 | Discharge Summary ---
Orders not resulted at time of discharge: Pending orders 11/13/17 04:00 Basic Metabolic Panel AM 0400 CBC [Complete Blood Count] [HEME] AM 04011/14/17 04:00 Basic Metabolic Panel AM 0400 CBC [Complete Blood Count] [HEME] AM 04011/15/17 04:00 Basic Metabolic Panel AM 0400 CBC [Complete Blood Count] [HEME] AM 0400 Date of Encounter: 11/12/17 Time of Encounter: 10:00 - Discharge Diagnosis (1) Congestive heart failure Priority: Primary Status: Acute Assessment and Plan: 82 year old female present to ER for shortness of breath and cough. Past medical history is significant for COPD, CHF, dementia, hypertension. She was assessed with acute CHF, acute COPD exacerbation and pneumonia. She was started on diuresis with IV lasix, and nebs, steroids and antibiotics. She gradually improved on this regimen and was discharged home in a stable condition. She will continue po diuretics and prednisone taper Qualifiers: Heart failure type: diastolic Heart failure chronicity: acute on chronic Qualified Code(s): I50.33 - Acute on chronic diastolic (congestive) heart failure (2) Community acquired pneumonia Priority: Secondary Status: Acute Assessment and Plan: Place patient on azithromycin and Rocephin. Place patient on cough syrup. Continue supportive treatment. Qualifiers: Laterality: left Lung location: lower lobe of lung Qualified Code(s): J18.1 - Lobar pneumonia, unspecified organism (3) COPD (chronic obstructive pulmonary disease) Priority: Secondary Status: Acute Qualifiers: COPD type: emphysema Emphysema type: unspecified Qualified Code(s): J43.9 - Emphysema, unspecified (4) Lung nodule Priority: Secondary Status: Acute (5) DVT prophylaxis Priority: Secondary Status: Acute (6) Dementia Priority: Secondary Status: Acute Qualifiers: Dementia type: unspecified type Dementia behavioral disturbance: without behavioral disturbance Qualified Code(s): F03.90 - Unspecified dementia without behavioral disturbance Hospital course: Ms. Mclaughlin is a 82 year old female - Time Spent with Patient Total time spent providing and/or coordinating discharge services: - Discharge Medications Prescriptions: Benzonatate [Tessalon] 200 mg PO TID PRN #30 capsule PRN Reason: Cough Ipratropium/Albuterol Sulfate [Combivent Respimat 20-100 Mcg] 4 gm IH Q4-6H PRN 30 Days #30 mist.inhal PRN Reason: Shortness Of Breath predniSONE [PredniSONE] 40 mg PO DAILY #5 tablet Home Medications: Alendronate Sodium [Fosamax] 70 mg PO HAMILTON 11/08/17 [History] Aspirin Enteric Coated [Aspirin EC] 325 mg PO DAILY 11/08/17 [History] Atorvastatin Calcium [Lipitor] 80 mg PO DAILY 11/08/17 [History] Budesonide/Formoterol 160/4.5 [Symbicort 160/4.5] 2 puff IH BID 11/08/17 [ History] Calcium Carbonate [Calcium] 1,200 mg PO DAILY 11/08/17 [History] Citalopram Hydrobromide [Celexa] 40 mg PO DAILY 11/08/17 [History] Divalproex Sodium [Depakote] 125 mg PO BID 11/08/17 [History] Docusate [Colace] 100 mg PO DAILY 11/08/17 [History] Donepezil [Aricept] 5 mg PO HS 11/08/17 [History] Ferrous Sulfate [Iron] 325 mg PO DAILY 11/08/17 [History] Fexofenadine HCl 60 mg PO DAILY 11/08/17 [History] Fluticasone Propionate Nasal [Flonase] 50 mcg NS DAILY 11/08/17 [History] Furosemide [Lasix] 20 mg PO BID PRN 11/08/17 [History] Lisinopril 2.5 mg PO DAILY 11/08/17 [History] Memantine [Namenda] 5 mg PO DAILY 11/08/17 [History] Multivit-Min/Folic Acid/Vit K1 [Multi For Her 50 Plus Softgel] 1 cap PO DAILY [History] Vida-3S/Dha/Epa/Fish Oil [Fish Oil Vida-3 Softgel] 1 cap PO DAILY 11/08/17 [ History] Oxygen 1 each .ROUTE AD 11/08/17 [History] Pantoprazole Sodium [Protonix] 40 mg PO DAILY 11/08/17 [History] Potassium Chloride [K-Tab ER] 20 meq PO DAILY 11/08/17 [History] Tiotropium [Spiriva] 18 mcg IH DAILY 11/08/17 [History] Benzonatate [Tessalon] 200 mg PO TID PRN #30 capsule 11/12/17 [Rx] Ipratropium/Albuterol Sulfate [Combivent Respimat 20-100 Mcg] 4 gm IH Q4-6H PRN 30 Days #30 mist.inhal 11/12/17 [Rx] predniSONE [PredniSONE] 40 mg PO DAILY #5 tablet 11/12/17 [Rx] Allergies/Adverse Reactions: 3 Allergy/AdvReac Type Severity Reaction Status Date / Time bacitracin Allergy See Verified 11/08/17 07:11 [From Neosporin Comments ([id number])] latex Allergy See Verified 11/08/17 07:11 Comments Neomycin Allergy See Verified 11/08/17 07:11 [From Neosporin Comments ([id number])] polymyxin B Allergy See Verified 11/08/17 07:11 [From Neosporin Comments ([id number])] Date of admission: 11/08/17 07:55 Primary care physician: Alice Busby CNP Consults: 11/08/17 14:52 Consult to Nurse Navigator [CONS] Routine Comment: CHF - Constitutional Vitals: Temp Pulse Resp BP Pulse Ox 98.4 F 75 17 95/55 92 11/12/17 07:14 11/12/17 07:14 11/12/17 07:27 11/12/17 07:27 11/12/17 07:27 General appearance: Present: A&O X 3, no acute distress, answers questions appropriately - Head Head exam: Present: atraumatic, normocephalic - Eye Eye exam: Present: PERRL, conjuntiva pink, sclera anicteric Pupils: Present: PERRL - Neck Neck exam general surgery: Present: supple, trachea midline. Absent: lymphadenopathy - Respiratory Respiratory exam: Present: CTAB. Absent: accessory muscle use, rales, rhonchi, wheezes - Cardiovascular Cardiovascular exam: Present: RRR, +S1, +S2. Absent: diastolic murmur, gallop, rubs, systolic murmur - GI/Abdominal GI/Abdominal exam: Present: normal bowel sounds, soft, no peritoneal signs. Absent: distended, tenderness - Extremities Exam Extremities exam: Present: warm, radial pulses palpable and symmetrical. Absent : calf tenderness, cyanotic, pedal edema - Neurological Exam Neurological exam: Present: CN II-XII intact, oriented X3, no focal deficits. Absent: pronater drift, facial droop, speech deficit - Skin Skin exam: Present: dry, intact - Patient Status Disposition: Home, Self-Care Condition: Good - Discharge Instructions Instructions: Benzonatate (By mouth), Prednisone (By mouth), Using Oxygen at Home (DC), Chronic Obstructive Pulmonary Disease (DC), Pneumonia (DC) Follow Up With: Alice Busby, MISSING PERSONS INVESTIGATOR [Primary Care Provider] - (i sent a web request office should call patient at home with appointment date and time)
[2017-11-12 11:09] VITALS: BP 105/60
== END 2017-11-12 12:55 | disposition home or self-care (01) | DRG 291 ==
LOC: EMEROO 21:48 → 2NENU 11-08 07:55
PROVIDERS: ADMIT Internal Medicine; ATTEND Internal Medicine

== ENCOUNTER 2018-01-29 06:27 | Inpatient (IN) ==
--- NOTE | 2018-01-28 14:13 | Anesthesia Evaluation PreOp ---
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) Other Medical History: GERD Anesthesia History: No Prior Anesthetic Complications, Past Anesthesia (CABG, PUNEET, bowel resection, IM nail hip) Alcohol Use: none Drug use: none Medications and Allergies Alendronate Sodium [Fosamax] 70 mg PO HAMILTON 11/08/17 [History] Aspirin Enteric Coated [Aspirin EC] 325 mg PO DAILY 11/08/17 [History] Atorvastatin Calcium [Lipitor] 80 mg PO DAILY 11/08/17 [History] Budesonide/Formoterol 160/4.5 [Symbicort 160/4.5] 2 puff IH BID 11/08/17 [ History] Calcium Carbonate [Calcium] 1,200 mg PO DAILY 11/08/17 [History] Citalopram Hydrobromide [Celexa] 40 mg PO DAILY 11/08/17 [History] Divalproex Sodium [Depakote] 125 mg PO BID 11/08/17 [History] Docusate [Colace] 100 mg PO DAILY 11/08/17 [History] Donepezil [Aricept] 5 mg PO HS 11/08/17 [History] Ferrous Sulfate [Iron] 325 mg PO DAILY 11/08/17 [History] Fexofenadine HCl 60 mg PO DAILY 11/08/17 [History] Fluticasone Propionate Nasal [Flonase] 50 mcg NS DAILY 11/08/17 [History] Furosemide [Lasix] 20 mg PO BID PRN 11/08/17 [History] Memantine [Namenda] 5 mg PO DAILY 11/08/17 [History] Multivit-Min/Folic Acid/Vit K1 [Multi For Her 50 Plus Softgel] 1 cap PO DAILY [History] [place]stein-3S/Dha/Epa/Fish Oil [Fish Oil Ed[place]stein-3 Softgel] 1 cap PO DAILY 11/08/17 [ History] Oxygen 1 each .ROUTE AD PRN 11/08/17 [History] Pantoprazole Sodium [Protonix] 40 mg PO DAILY 11/08/17 [History] Potassium Chloride [K-Tab ER] 20 meq PO DAILY 11/08/17 [History] Tiotropium [Spiriva] 18 mcg IH DAILY 11/08/17 [History] Acetaminophen [Tylenol] 325 mg PO Q6HR PRN 11/21/17 [History] Lactobacillus Acidophilus [Acidophilus] 1 each PO BID 11/21/17 [History] Loratadine [Claritin] 10 mg PO DAILY 11/21/17 [History] 3 Allergy/AdvReac Type Severity Reaction Status Date / Time bacitracin Allergy See Verified 11/08/17 07:11 [From Neosporin Comments ([id number])] latex Allergy See Verified 11/08/17 07:11 Comments Neomycin Allergy See Verified 11/08/17 07:11 [From Neosporin Comments ([id number])] polymyxin B Allergy See Verified 11/08/17 07:11 [From Neosporin Comments ([id number])] - Meds/Allergy Pre-op Review Medications Reviewed: Yes Allergies Reviewed: Yes Beta Blockers on Current Med List: Yes If Beta Blockers taken, Date/Time (Last Dose taken): today 10939 Anesthesia Results - Labs Laboratory Tests 01/22/18 01/22/18 01/22/18 14:05 14:05 14:05 Hgb 12.5 Hct 39.2 Plt Count 156 PT 12.4 H INR 1.1 APTT 30.5 Sodium 139 Potassium 4.6 BUN 22 Creatinine 1.24 H - Imaging EKG: report reviewed (SINUS RHYTHM POSSIBLE LEFT ATRIAL ENLARGEMENT [-0.1mV P WAVE IN V1/V2] POSSIBLE RIGHT VENTRICULAR CONDUCTION DELAY [RSR (QR) IN V1/V2] LEFT VENTRICULAR HYPERTROPHY AND ST-T CHANGE [VOLTAGE CRITERIA PLUS ST/T ABNORMALITY] RULE OUT ISCHEMIA) Additional studies: stress test: mpression: Pharmacologic stress ECG is non-diagnostic for ischemia due to baseline non-specific ST and T changes. Gated EF > 70%. Perfusion imaging was negative for ischemia or infarct. echo: Impressions: LVEF 60%. Normal LV chamber size and function. Mild concentric left ventricular hypertrophy. Mild left ventricular diastolic dysfunction. Normal right ventricular structure and function. Mild aortic stenosis. Mean gradient 14 mmHg. Severe mitral annular calcification. Moderate mitral stenosis. Mean transmitral gradient is 8 mmHg (HR 81). No evidence of pulmonary hypertension. Anesthesia Exam Selected Entries 01/29/18 06:46 Temperature 97.7 F Pulse Rate 64 Respiratory Rate 18 Blood Pressure 127/71 O2 Sat by Pulse Oximetry 97 - HEENT Pupil (Motor): EOMI Mallampati: II Teeth: Edentulous Oral Opening: Greater than 3 - OCCUPATIONAL HEALTH COORDINATOR LOC: Oriented OCCUPATIONAL HEALTH COORDINATOR Motor: Normal RUE, Normal LUE, Normal RLE, Normal LLE, Normal Face OCCUPATIONAL HEALTH COORDINATOR Sensory: Normal: RUE, LUE, RLE, LLE, Face - Cardiac Rhythm: Regular Murmur: Systolic JVD: No - Pulmonary Breath Sounds: bilateral Clear Respiratory Effort: Symmetrical Anesthesia Assess/Plan ASA Score: 3 Modified Minnie Scale for Level of Consciousness: Cooperative, oriented, and tranquil Anesthetic Plan: General Monitoring Plan: Standard Monitors Recovery Plan: PACU (agrees to [place])
[~2018-01-29 06:27] MED LIST: Vancomycin 1,000 MG, Sodium Chloride IRRigation 1,000 ML IR ONE
[2018-01-29] MEDS ORDERED: Albuterol 2.5 MG/3 ML NEBULIZER IH ONE ×2 (06:46→09:50)
[2018-01-29] MEDS ORDERED: CeFAZolin Syr 2,000MG/20 ML 2,000 MG/20 ML SYRINGE IVPB ONE (06:46)
[2018-01-29] MEDS ORDERED: Ringers Solution, Lactated 1,000 ML IVC SCH (07:00)
[2018-01-29] MEDS ORDERED: Heparin 1,000 UNITS/500 mL 500 ML ONE (07:03)
[2018-01-29] MEDS ORDERED: Lidocaine -MPF 4% 5 ML AMPUL ONE (07:06)
[2018-01-29] MEDS ORDERED: *HR* FentaNYL (PF) 100 MCG/2 ML VIAL ONE (07:13)
[2018-01-29] MEDS ORDERED: *HR* Propofol 200 MG/20 ML VIAL IVP ONE (07:13)
[2018-01-29] MEDS ORDERED: Lidocaine -MPF 2% 2 ML VIAL ONE (07:13)
[2018-01-29] MEDS ORDERED: Ondansetron 4 MG/2 ML VIAL ONE (07:13)
[2018-01-29] MEDS ORDERED: Dexamethasone 4 MG/ML VIAL ONE (07:13)
[2018-01-29] MEDS ORDERED: *HR* Rocuronium Bromide 50 MG/5 ML VIAL ONE (07:13)
[2018-01-29] MEDS ORDERED: Lidocaine -MPF 1% 5 ML AMPUL ONE (07:17)
--- NOTE | 2018-01-29 07:21 | History & Physical Report ---
Date of Encounter: 01/29/18 Time of Encounter: 07:15 24 Hour HP Update - Instructions Instructions: If the History and Physical is less than 30 days old and was completed prior to A.M. admission and or procedure and has NOT been updated on calendar day of procedure please complete this update prior to performing procedure. - Update Patient reports changes in Medical Condition: No Changes in examination, assessment, or condition: No Changes in Medication: No Preop tests/diagnostics Reviewed: Yes Surgery Remains Indicated: Yes Consent for Planned Operative Procedure(s) Verified: Yes - Pre-Operative Checklist Preoperative Checklist Indicated: Yes Prophylactic Antibiotic Ordered: Yes (vancomycin due to MRSA risk) Home Medications Include Beta Austyn: No Beta Austyn Taken Today (Day of Surgery): No Beta Austyn Taken Yesterday (Day Prior to Surgery): No Is VTE Prophylaxis Indicated?: Yes
[2018-01-29] MEDS ORDERED: Bupivacaine/EPI 1:200k 0.25%PF 10 ML VIAL INFILT ONE (07:26)
[2018-01-29] MEDS ORDERED: Heparin 1,000 UNITS/500 mL 1,500 ML ONE (07:27)
[2018-01-29] MEDS ORDERED: Isovue-300 50 ML VIAL IVP ONE (07:32)
[2018-01-29] MEDS ORDERED: *HR* Etomidate 40 MG/20 ML VIAL IVP ONE (07:58)
[2018-01-29] MEDS ORDERED: EPHEDrine 50 MG/ML VIAL ONE (08:16)
[2018-01-29] MEDS ORDERED: *HR* Heparin 5,000 UNIT/ML VIAL ONE (09:08)
[2018-01-29] MEDS ORDERED: *HR* Phenylephrine 10 MG/ML VIAL ONE (09:17)
[2018-01-29] MEDS ORDERED: *HR* OxyCODONE Immed Rel 5 MG TABLET PO PRN ×2 (09:50→11:23)
[2018-01-29] MEDS ORDERED: Dexamethasone 4 MG/ML VIAL IVP ONE (09:50)
[2018-01-29] MEDS ORDERED: MORPHINE SUL Oral CONC 10 MG/0.5 ML ORAL.SYG SL PRN (09:50)
[2018-01-29] MEDS ORDERED: Neostigmine Methylsulfate 3 MG/3 ML SYRINGE ONE (10:02)
--- NOTE | 2018-01-29 10:20 | Operative Note ---
Date of procedure: 01/29/18 Pre-op diagnosis: Peripheral vascular disease Post-op diagnosis: same Procedure: 1. Left iliofemoral endarterectomy with bovine pericardial patch angioplasty. 2. Left deep femoral endarterectomy with bovine pericardial patch angioplasty. Complications: None Anesthesia: GETA Surgeon: Stuart Le Was there an scheduling assistant present: No Estimated blood loss (cc): 50 Specimen: Left lower extremity plaque Condition: stable Disposition: PACU Procedure in Detail: Indications: The patient is a 83-year-old female with a history of hyperlipidemia, coronary artery disease, chronic obstructive pulmonary disease and peripheral vascular disease with rest pain and ulceration. The patient was found to have significant left iliofemoral disease. Revascularization was recommended to reduce her risk of limb loss and alleviate symptoms. Procedure: The patient was identified in the preoperative area. The risks, benefits, and alternatives of procedure were discussed and all questions were answered. She was taken to the operating room and placed in supine position on the operating room table. After the induction of general endotracheal anesthesia, she was cleaned and draped in normal sterile fashion. An oblique incision was made in the left groin sharply. Hemostasis was obtained with electrocautery. Through a process of blunt and sharp electrocautery dissection , the skin and subcutaneous tissues were incised and the left distal iliac, common femoral, deep femoral and superficial femoral arteries were dissected cicumferentially and surrounded with vessel loops. The patient received 5000 units of heparin intravenously. After waiting adequate time for the heparin to circulate, the arteries were occluded by applying tension to the vessel loops. A longitudinal ateriotomy was made into the common femoral artery. It was extended proximally into the right external iliac artery. A glidewire was advanced along the plaque proximally into the right external iliac artery. A 4-[place] sheath was advanced over the wire. A guiding catheter was used to advance the wire into the left common iliac artery. The wire would not pass easily beyond left common iliac artery. An angiogram was then performed through the sheath. This revealed diffuse irregular aortoiliac plaque. The wire was removed and pulsatile flow was noted through the iliac artery. The sheath was removed. Weak pulsatile flow was noted through the arteriotomy. Dense calcified plaque was noted extending into the external iliac artery. Using a dental [place], a standard endarterectomy was performed along the distal iliac and common femoral artery. Upon completion of the iliofemoral endarterectomy improved pulsatile flow was noted through the common femoral artery. Release of the deep femoral vessel loop revealed minimal retrograde flow. Using a dental freer a deep femoral endarterectomy was then performed. The endpoint was inspected and there was no evidence of an elevated flaps.. A bovine pericardial patch was cut to fit the defect and sutured in place with running 6-0 Prolene. Prior to completing the patch anastomosis, each vessel was flushed individually, then reoccluded. Heparinized saline was infused into the lumen. The patch was completed and flow was restored. Thrombin and Gelfoam were used to aid in hemostasis. Polyphasic signal was noted distal to the distal end of the patch as well as the posterior tibial artery. Wound was irrigated with antibiotic-containing saline. Platelet-rich and platelet-poor plasma were infused into the wound. The wounds were reapproximated with layer of 2-0 Vicryl followed by two layers of 3-0 and Vicryl 3-0 Monocryl in the subcuticular layer. Sterile dressings were applied. The patient was extubated, taken to recovery room in stable condition.
--- NOTE | 2018-01-29 10:54 | Anesthesia Evaluation Post Op ---
Date of Encounter: 01/29/18 Time of Encounter: 10:54 - Vital Signs Vital Signs: Vital Signs/O2 Sat, Most Current Temp Pulse Resp BP Pulse Ox 98.6 F 90 18 124/78 97 01/29/18 10:23 01/29/18 10:43 01/29/18 10:43 01/29/18 10:43 01/29/18 10:43 - Lungs Lungs: Clear Ascult./Percussion - Airway Airway: Non-obstructed - Cardiovascular Regular Rate - Mental Status Mental Status: Alert & Oriented, Answers Appropriately - Pain Pain Scale: 0 Pain Scale used: Numeric (1 - 10) - Nausea Vomiting Nausea Vomiting: Not Present - Hydration Hydration: Ice chips, Larsen catheter - Discharge PostOp Status: Transfer Patient to floor
[2018-01-29] MEDS ORDERED: 0.9 % Sodium Chloride 1,000 ML IVC SCH (11:23)
[2018-01-29] MEDS ORDERED: Acetaminophen 325 MG TABLET PO PRN (11:23)
[2018-01-29] MEDS ORDERED: *HR* Labetalol 20 MG/4 ML SYRINGE IVP PRN (11:23)
[2018-01-29] MEDS ORDERED: (Ipratropium/Albuterol Sulfate [Combivent Respimat 20 IH PRN (11:23)
[2018-01-29] MEDS ORDERED: Ondansetron 4 MG/2 ML VIAL IVP PRN (11:23)
[2018-01-29] MEDS ORDERED: Naloxone 0.4 MG/ML INJ IVP PRN (11:23)
[2018-01-29] MEDS ORDERED: OXYCODONE Oral CONC 10 MG/0.5 ML ORAL.SYG SL PRN ×2 (11:23)
[2018-01-29] MEDS: Budesonide/Formoterol 160/4.5 MDI IH SCH (19:45)
[2018-01-29] MEDS: *HR* HYDROcodone/Acet 5/325 mg TABLET PO PRN (20:44)
[2018-01-29] MEDS: Divalproex Sodium 125 MG CAPSULE PO SCH (20:44)
[2018-01-30 05:34] LABS: Basophils % 0.1 %; Hematocrit 33.4 % (35.3-44.9); Hemoglobin 10.9 g/dL (11.5-15.4); Immature Granulocytes % 0.3 % (0-4); Lymphocytes # 1.1 K/mcL (0.6-4.6); Lymphocytes % 11.8 %; Mean Corpuscular HGB Conc 32.6 g/dL (31.6-35.5); Mean Corpuscular Hemoglobin 30.6 pg (28.0-33.3); Mean Corpuscular Volume 93.8 fL (83.0-100.0); Mean Platelet Volume 10.7 fL (9.4-12.4); Monocytes # 0.7 K/mcL (0.0-1.3); Monocytes % 6.7 %; Neutrophils # 7.9 K/mcL (1.6-8.9); Platelet Count 127 K/mcL (140-400); Red Blood Count 3.56 M/mcL (3.82-4.97); Segmented Neutrophils % 81.1 %
[2018-01-30 05:57] LABS: Calcium 9.2 mg/dL (8.6-10.3); Potassium 4.2 mEq/L (3.5-5.1)
[2018-01-30] MEDS ORDERED: *HR* Heparin 5,000 UNIT/ML VIAL SQ SCH ×2 (06:00)
[2018-01-30] MEDS ORDERED: Furosemide 20 MG TABLET PO PRN (06:37)
--- NOTE | 2018-01-30 06:47 | Discharge Summary ---
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 She is biphasic pedal signals. Her wound is healing. She has no hematoma. Her pain is controlled. She will be discharged today. Qualifiers: Lower extremity ulceration location: other part of foot Qualified Code(s): I70.235 - Atherosclerosis of [place] arteries of right leg with ulceration of other part of foot; I70.245 - Atherosclerosis of [place] arteries of left leg with ulceration of other part of foot (2) CAD (coronary artery disease) Priority: Secondary Status: Chronic Qualifiers: Coronary Disease-Associated Artery/Lesion type: [place] artery [place] vs. transplanted heart: [place] heart Associated angina: without angina Qualified Code(s): I25.10 - Atherosclerotic heart disease of [place] coronary artery without angina pectoris (3) Mixed hyperlipidemia Priority: Secondary Status: Chronic (4) COPD (chronic obstructive pulmonary disease) Priority: Secondary Status: Chronic Qualifiers: COPD type: emphysema Emphysema type: panlobular Qualified Code(s): J43.1 - Panlobular emphysema (5) Chronic disease anemia Priority: Secondary Status: Chronic Comments: The patient has chronic anemia. She is hemodynamically stable without evidence of ongoing blood loss. - Hospital Course Hospital course: Ms. Mclaughlin is a 83 year old female with peripheral vascular disease with ulceration. The patient was admitted on 01/29/2017. She underwent a left iliofemoral endarterectomy and angiogram. She tolerated the procedure well. Postoperative #1 she reported improvement of her leg symptoms. Wound appeared to be healing well. She was without complaints and was discharged home in stable condition on postoperative day #1. - Time Spent with Patient Total time spent providing and/or coordinating discharge services: - Discharge Medications Prescriptions: HYDROcodone/Acet 5/325 mg [[place] 5-325 mg] 1 tab PO Q6H PRN 4 Days #16 tablet PRN Reason: Postoperative pain Home Medications: Alendronate Sodium [Fosamax] 70 mg PO [place] 11/08/17 [History] Aspirin Enteric Coated [Aspirin EC] 325 mg PO DAILY 11/08/17 [History] Atorvastatin Calcium [Lipitor] 80 mg PO DAILY 11/08/17 [History] Budesonide/Formoterol 160/4.5 [Symbicort 160/4.5] 2 puff IH BID 11/08/17 [ History] Calcium Carbonate [Calcium] 1,200 mg PO DAILY 11/08/17 [History] Citalopram Hydrobromide [Celexa] 40 mg PO DAILY 11/08/17 [History] Divalproex Sodium [Depakote] 125 mg PO BID 11/08/17 [History] Docusate [Colace] 100 mg PO DAILY PRN 11/08/17 [History] Donepezil [Aricept] 5 mg PO HS 11/08/17 [History] Ferrous Sulfate [Iron] 325 mg PO DAILY 11/08/17 [History] Fluticasone Propionate Nasal [Flonase] 1 spr NS DAILY 11/08/17 [History] Furosemide [Lasix] 20 mg PO BID PRN 11/08/17 [History] Memantine [Namenda] 5 mg PO DAILY 11/08/17 [History] Multivit-Min/Folic Acid/Vit K1 [Multi For Her 50 Plus Softgel] 1 cap PO DAILY [History] [place]-3S/Dha/Epa/Fish Oil [Fish Oil [place]-3 Softgel] 1 cap PO DAILY 11/08/17 [ History] Pantoprazole Sodium [Protonix] 40 mg PO DAILY 11/08/17 [History] Potassium Chloride [K-Tab ER] 20 meq PO DAILY 11/08/17 [History] Tiotropium [Spiriva] 18 mcg IH DAILY 11/08/17 [History] Loratadine [Claritin] 10 mg PO DAILY 11/21/17 [History] Ipratropium/Albuterol Sulfate [Combivent Respimat 20-100 Mcg] 1 puff IH Q4-6H PRN 01/29/18 [History] HYDROcodone/Acet 5/325 mg [[place] 5-325 mg] 1 tab PO Q6H PRN 4 Days #16 tablet [Rx] Allergies/Adverse Reactions: 3 Allergy/AdvReac Type Severity Reaction Status Date / Time bacitracin Allergy See Verified 01/29/18 14:18 [From Neosporin Comments ([id number])] latex Allergy See Verified 01/29/18 14:18 Comments Neomycin Allergy See Verified 01/29/18 14:18 [From Neosporin Comments ([id number])] polymyxin B Allergy See Verified 01/29/18 14:18 [From Neosporin Comments ([id number])] Date of admission: 01/29/18 11:08 Primary care physician: Alice Busby CNP Consults: 01/29/18 11:51 Consult to [employer] [CONS] Routine Reason for SW Consult: Home health needs Procedure(s) Performed: Left femoral endarterectomy Discharging clinician: Stuart Le Anticipated date of discharge: 01/30/18 Exam Vital Signs, Last 4 Hours Temp Pulse Resp BP Pulse Ox 01/30/18 05:00 66 14 112/58 95 01/30/18 03:32 97.0 F L 01/30/18 03:00 72 15 107/57 94 General: Present: Conversant, No Apparent Distress HEENT: Present: Pupils equal Neck: Absent: Tracheal deviation Cardiac: Present: Reg Rate and Rhythm Lungs: Present: Normal Breath Sounds Neuro: Present: Alert and responsive, No focal deficits noted, Motor nerves grossly intact, Sensory nerves grossly intact Abdomen: Present: Soft Vascular: Present: Normal capillary refill, Pulse, diminished (Pedal signals biphasic bilaterally), Surgical incisions (Clean, dry and intact without erythema or drainage, no hematoma). Absent: Cyanosis, Edema Skin: Present: Wound/ulcer(s) (Superficial ulcerations appear unchanged.) - Patient Status Disposition: Home Health Service Condition: Good Functional capacity at discharge: independent ambulation Overall status at discharge: patient is back to baseline - Discharge Instructions Instructions: Hydrocodone/Acetaminophen (By mouth), Peripheral Vascular Disorders (DC), Remote Superficial Femoral Artery Endarterectomy (DC) Follow Up With: Alice Busby CNP [Primary Care Provider] - 02/08/18 1:30 pm Stuart Le MD [Partnered Physician] - 03/05/18 1:30 pm Additional Instructions: May remove bandage and shower on 01/31/2018. Wash wounds gently and pat to dry. Applied dry gauze to wound daily for 7 days. No tub baths or swimming until 03/07/2018. Call Dr. Le at [phone] with questions or concerns. - Diet and Activity Activity: increase activity as tolerated Diet: advance to your usual diet - VTE Documentation of Mechanical Device: Intermittent pneumatic compression device
[2018-01-30 07:42] VITALS: BP 116/61
[2018-01-30] MEDS ORDERED: Ipratropium 1 PUFF INHALER IH PRN (08:31)
[2018-01-30] MEDS ORDERED: Loratadine 10 MG TABLET PO SCH (09:00)
[2018-01-30] MEDS ORDERED: OMEGA PO SCH (09:00)
[2018-01-30] MEDS ORDERED: EPA PO SCH (09:00)
[2018-01-30] MEDS ORDERED: Multivit/Ca/Min/Fe/FA 1 TAB TABLET PO SCH (09:00)
[2018-01-30] MEDS ORDERED: DHA PO SCH (09:00)
[2018-01-30] MEDS ORDERED: FISH OIL PO SCH (09:00)
[2018-01-30] MEDS ORDERED: Fluticasone Propionate Nasal 50 MCG/SPRAY BOTTLE NS SCH (09:00)
[2018-01-30] MEDS ORDERED: Aspirin Enteric Coated 325 MG Tablet PO SCH (09:00)
[2018-01-30] MEDS: Divalproex Sodium 125 MG CAPSULE PO SCH (09:32)
--- NOTE | 2018-01-30 09:58 | Physician Discharge Referral ---
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 For more information, call the [place] Tobacco Quit Line at 7-862-VSXK-NOW. - Diet/Nutrition Diet/Nutrition Orders: Regular - Activity Activity Orders: Up ad shlomo - Services Needed Following services are medically necessary services: Home Health Aide Other Treatments: Dry gauze to left groin wound daily for 7 days. - Transfer Medications Prescriptions: HYDROcodone/Acet 5/325 mg [[place] 5-325 mg] 1 tab PO Q6H PRN 4 Days #16 tablet PRN Reason: Postoperative pain Home Medications: Alendronate Sodium [Fosamax] 70 mg PO [place] 11/08/17 [History] Aspirin Enteric Coated [Aspirin EC] 325 mg PO DAILY 11/08/17 [History] Atorvastatin Calcium [Lipitor] 80 mg PO DAILY 11/08/17 [History] Budesonide/Formoterol 160/4.5 [Symbicort 160/4.5] 2 puff IH BID 11/08/17 [ History] Calcium Carbonate [Calcium] 1,200 mg PO DAILY 11/08/17 [History] Citalopram Hydrobromide [Celexa] 40 mg PO DAILY 11/08/17 [History] Divalproex Sodium [Depakote] 125 mg PO BID 11/08/17 [History] Docusate [Colace] 100 mg PO DAILY PRN 11/08/17 [History] Donepezil [Aricept] 5 mg PO HS 11/08/17 [History] Ferrous Sulfate [Iron] 325 mg PO DAILY 11/08/17 [History] Fluticasone Propionate Nasal [Flonase] 1 spr NS DAILY 11/08/17 [History] Furosemide [Lasix] 20 mg PO BID PRN 11/08/17 [History] Memantine [Namenda] 5 mg PO DAILY 11/08/17 [History] Multivit-Min/Folic Acid/Vit K1 [Multi For Her 50 Plus Softgel] 1 cap PO DAILY [History] [place]-3S/Dha/Epa/Fish Oil [Fish Oil [place]-3 Softgel] 1 cap PO DAILY 11/08/17 [ History] Pantoprazole Sodium [Protonix] 40 mg PO DAILY 11/08/17 [History] Potassium Chloride [K-Tab ER] 20 meq PO DAILY 11/08/17 [History] Tiotropium [Spiriva] 18 mcg IH DAILY 11/08/17 [History] Loratadine [Claritin] 10 mg PO DAILY 11/21/17 [History] Ipratropium/Albuterol Sulfate [Combivent Respimat 20-100 Mcg] 1 puff IH Q4-6H PRN 01/29/18 [History] HYDROcodone/Acet 5/325 mg [[place] 5-325 mg] 1 tab PO Q6H PRN 4 Days #16 tablet [Rx] Allergies/Adverse Reactions: 3 Allergy/AdvReac Type Severity Reaction Status Date / Time bacitracin Allergy See Verified 01/29/18 14:18 [From Neosporin Comments ([id number])] latex Allergy See Verified 01/29/18 14:18 Comments Neomycin Allergy See Verified 01/29/18 14:18 [From Neosporin Comments ([id number])] polymyxin B Allergy See Verified 01/29/18 14:18 [From Neosporin Comments ([id number])] Certification: Further, I certify that my clinical findings support that this patient is homebound (i.e. absences from home require considerable and taxing effort and are for medical reasons or cheondoism services or infrequently or short duration when for other reasons) because: Homebound Reason: Patient requires assistance of a person or device to safely leave home, Leaving home requires considerable and taxing effort due to condition Attestation: My signature below is to certify that this patient is under my care and that I, or nurse practitioner, or a physician's pediatric dental assistant working with me, has a face-to -face encounter with this patient.
[2018-01-30] MEDS ORDERED: Tiotropium 18 MCG inhalation IH SCH (10:00)
[2018-01-30] MEDS: Budesonide/Formoterol 160/4.5 MDI IH SCH (10:35)
[2018-01-30] MEDS: *HR* HYDROcodone/Acet 5/325 mg TABLET PO PRN (11:54)
[2018-02-03] MEDS ORDERED: NON-FORMULARY MEDICATION 1 EACH EACH (Alendronate Sodium [Fosamax] 70 MG) PO SCH (10:24)
== END 2018-01-30 12:29 | disposition home health service (06) | DRG 271 ==
LOC: SAMDAY 06:27 → ICNU 11:08
PROVIDERS: ADMIT Surgery; ATTEND Surgery